=== PATIENT | male | born 2000 ===

== ENCOUNTER 2020-10-21 05:09 | Emergency (ER) | payer SELFPAY ==
[~2020-10-21] VITALS: Ht 175.3 cm; Wt 74.8 kg
[2020-10-21 05:09] VITALS: BP 139/74
[2020-10-21] MEDS ORDERED: IBUP80TA PO (05:13)
== END 2020-10-21 07:12 | disposition left against medical advice (07) ==
LOC: M ED 05:09
DX: Z53.21 Procedure and treatment not carried out due to patient leaving prior to being seen by health care provider (principal)